=== PATIENT | female | born 1930 | race Caucasian/White ===

== ENCOUNTER 2017-05-09 17:37 | Inpatient (IN) ==
[2017-05-09] MEDS ORDERED: SODIUM CHLORIDE 0.9% 500 ML IV STA (18:44)
[2017-05-09] MEDS ORDERED: ALBUTEROL/IPRATROPIUM 3 ML NEB RESP TX STA (18:44)
[2017-05-09] MEDS ORDERED: PIPERACILLIN/TAZOBACTAM 3,375 MG in SODIUM CHLORIDE 0.9% 100 ML IV STA (18:44)
[2017-05-09 18:56] LABS: Basophils % 0.3 % (0.0-0.8); Eosinophils % 0.1 % (0.00-10.9); Hemoglobin 11.5 GM/DL (12.0-16.0); Immature Granulocytes % 0.7 %; Lymphocytes # 1.3 10*3/uL (1.4-4.0); Lymphocytes % 8.4 % (21.3-54.2); Mean Corpuscular HGB Conc 32.9 GM/DL (32-36); Mean Corpuscular Hemoglobin 30 PG (27-34); Mean Corpuscular Volume 92.6 FL (87-102); Mean Platelet Volume 10.4 FL (9.6-12.0); Monocytes # 0.8 10*3/uL (0.11-0.8); Monocytes % 5.2 % (1.7-12.7); Neutrophils # 12.8 10*3/uL (1.4-7.4); Neutrophils % 85.3 % (38.7-73.9); Platelet Count 196 T/CUMM (130-400); Red Blood Count 3.78 MC/CUMM (3.8-5.5)
--- NOTE | 2017-05-09 19:05 | XRay Report ---
Portable chest. Indication: Shortness of breath and fever. Comparison: April 17, 2017. The heart is enlarged with left ventricular hypertrophy. Cardiac hardware is in place. There is calcific plaque present within the aortic knob. There is atelectasis +/- scarring at the left lung base. A small left pleural effusion may also be present. The right lung is clear. There is callus formation at a fracture of the right proximal humerus, in the left distal clavicle fracture is also visible. Impression: Stable mild cardiomegaly. Persistent opacities at the left lung base which may represent a combination of atelectasis, scarring, and or pleural effusion. PROCEDURE INTERPRETED AT [facility] [place] DEPARTMENT OF RADIOLOGY Final Report Signed by: Dr. Tyra Bowden
[2017-05-09 19:11] LABS: Albumin 3.3 G/DL (3.4-5.0); Calcium 9.6 MG/DL (8.5-10.1); Osmolality,Calculated 276.7 MOS/KG (273-304); Potassium 3.9 MMOL/L (3.5-5.1); Total Protein 6.7 G/DL (6.4-8.3)
[2017-05-09] MEDS ORDERED: PIPERACILLIN/TAZOBACTAM 3,375 MG VIAL IV ONE (19:13)
[2017-05-09] MEDS ORDERED: ALBUTEROL NEB SOLN 5 MG/ML 20 ML/BOTTLE CONT NEB STA (19:32)
[2017-05-09 19:54] LABS: Apearance,Urine CLEAR (Clear); Bilirubin,Urine Negative (Negative); Blood, Urine Small mg/dL (Negative); Glucose,Urine (UA) Negative (Negative); Ketones,Urine 5 mg/dL (Negative); Mucus,Urine Occasional /LPF (Occasional); Nitrite,Urine Negative (Negative); Protein,Urine Negative; RBC,Urine <1 /HPF (0-4); Urine Color Yellow (Yellow); Urine Specific Gravity 1.013 (1.001-1.035); Urine Urobilinogen < 2.0 EU/DL (0.2-1.0); WBC,Urine <1 /HPF (0-6)
--- NOTE | 2017-05-09 19:57 | Emergency Department Note ---
Jessenia Peters Hilary, am scribing for, and in the presence of, Killian Rodríguez MD 18:31. Anne Peters Charles R, MD, personally performed the services described in this documentation, ascribed by Elsy Ruelas in my presence, and it is both accurate and complete [id number] . Arrival - Arrival Chief Complaint: Fever Stated Complaint: fever ED Nursing Triage Note: Patient brought to ER 20 via [facility] with a complaint of fever. Family states that it has been going on most of the day. Home health nurse instructed patient to cme to the ER if it didn't improve. Mode of Arrival: Stretcher Limitations: No Limitations Source: Patient, RN Notes Reviewed Time Seen by Provider: 05/09/17 18:14 - History of Present Illness HPI Narrative: Pt is a 87 y/o white female brought to the ED via EMS with c/o a fever which onset today. Pt confirms fever, cough and hurting all over but denies chest pain. No other complaints or problems stated in the ED. Onset (ago): hour(s) Consistency: constant Severity: mild Severity scale (1-10): 1 Date of Last Menstrual Period: Hysterectomy Allergies/Adverse Reactions: Allergies Allergy/AdvReac Type Severity Reaction Status Date / Time cephalexin [From Keflex] Allergy Unknown/Unable Verified 03/19/17 19:51 to obtain clindamycin Allergy Unknown/Unable Verified 03/19/17 19:51 to obtain codeine Allergy Unknown/Unable Verified 03/19/17 19:51 to obtain iodine Allergy Unknown/Unable Verified 03/19/17 19:51 to obtain levofloxacin [From Levaquin] Allergy Unknown/Unable Verified 03/19/17 19:51 to obtain theophylline Allergy Unknown/Unable Verified 03/19/17 19:51 to obtain acetaminophen [From Percocet] AdvReac Unknown/Unable Verified 03/19/17 19:51 to obtain aspirin AdvReac Unknown/Unable Verified 03/19/17 19:51 to obtain ketorolac [From Toradol] AdvReac Unknown/Unable Verified 03/19/17 19:51 to obtain loratadine [From Claritin] AdvReac Unknown/Unable Verified 03/19/17 19:51 to obtain Neuromuscular Blockers, AdvReac Unknown/Unable Verified 03/19/17 19:51 Steroidal to obtain [Steroidal Neuromuscular Blockers] Oxycodone [From Percocet] AdvReac Unknown/Unable Verified 03/19/17 19:51 to obtain tramadol [From Ultram] AdvReac Unknown/Unable Verified 03/19/17 19:51 to obtain anti inflammatory drugs AdvReac Unknown/Unable Uncoded 03/19/17 19:51 to obtain Home Medications: Home Medications Medication Instructions Recorded Confirmed Type Brimonidine 0.1% Oph Soln 1 drop BOTH EYES BID 05/11/15 04/03/16 History [Alphagan P 0.1% Oph Soln] Cholecalciferol [Vitamin D3] 1,000 unit PO DAILY 05/11/15 04/03/16 History Escitalopram [Lexapro] 10 mg PO DAILY 05/11/15 04/03/16 History Latanoprost 0.005% Oph Soln 1 drop BOTH EYES BEDTIME 05/11/15 04/03/16 History [Xalatan 0.005% Oph Soln] Omeprazole [Prilosec] 20 mg PO DAILY 05/11/15 04/03/16 History Pilocarpine Tab [Salagen] 5 mg PO TID 05/11/15 04/03/16 History hydrOXYzine HCL TAB [Atarax Tab] 25 mg PO PRN PRN 05/11/15 04/03/16 History Arformoterol Neb [Brovana] 15 mcg RESP TX RT BID 03/30/16 04/03/16 History Fentanyl Patch 1 patch TRANSDERM Q3DAY 03/30/16 04/03/16 History Gabapentin 100 mg PO BID 03/30/16 04/03/16 History HYDROcodone/ACETAMIN 10-325 [Tama 1 tablet PO DIRECTED PRN 03/30/16 History 10-325] Ibandronate Sodium [Boniva] 150 mg PO DIRECTED 03/30/16 04/03/16 History Potassium Chloride 10 meq PO QOTHER DAY 03/30/16 04/03/16 History Zolpidem Tartrate [Ambien] 10 mg PO BEDTIME PRN 03/30/16 04/03/16 History rOPINIRole [Requip] 0.5 mg PO DAILY 03/30/16 04/03/16 History Review of System - Review of System 12 point system: reviewed and no additional remarkable complaints except as stated - Review of System Constitutional: Present: fever Respiratory: Present: cough Cardiovascular: Absent: chest pain Medical,Surgical,& Family Hx - Medical History Cardio: History of: CAD, Hypertension, Cardiovascular Problems (dr maria) Neurology: History of: Dementia No history of: Seizures HEENT: History of: Eye Problem (glasses), Dental Problems (full set) Respiratory: History of: Respiratory Problems (severe cough for several years) Gastrointestinal: History of: GERD Musculoskeletal: History of: Osteoporosis, Musculoskeletal Problems (Arthritis) - Surgical History Cardiac Surgeries: Sugical HX of: Internal Defibrillator Abdominal Surgeries: Surgical HX of: Appendectomy Reproductive Surgeries: Surgical HX of;: Hysterectomy Orthopedic Surgeries: Surgical HX of;: Total Hip Replacement (Bilat) - Social History Smoking Status: Never smoker Exam Vital Signs: Vital Signs Temperature 99.6 F 05/09/17 17:48 Pulse Rate 105 H 05/09/17 19:36 Respiratory Rate 19 05/09/17 19:36 Blood Pressure 115/61 05/09/17 19:00 O2 Sat by Pulse Oximetry 100 05/09/17 19:36 - General General appearance: alert, in no apparent distress - Head Head exam: Present: atraumatic, normocephalic - Eye Eye exam: Present: normal appearance, PERRL, EOMI - ENT ENT exam: Present: mucous membranes dry, TM's normal bilaterally. Absent: mucous membranes moist - Neck Neck exam: Present: full ROM, trachea midline. Absent: tenderness - Chest Chest inspection: Present: symmetric chest wall rise. Absent: tenderness - Respiratory Respiratory exam: Present: rhonchi, other (wet productive cough). Absent: normal lung sounds bilaterally (decreased breath sounds) - Cardiovascular Cardiovascular exam: Present: tachycardia, irregular rhythm, normal heart sounds. Absent: murmur, rubs, gallop - Abdominal Exam Abdominal exam: Present: soft, diminished bowel sounds. Absent: distention, tenderness - Extremities Exam Extremities exam: Present: full ROM. Absent: tenderness, pedal edema (no pedal edema but painful to touch) - Back Exam Back exam: Present: full ROM. Absent: tenderness - Neurological Exam Neurological exam: Present: alert, oriented X3, CN II-XII intact. Absent: motor sensory deficit - Psychiatric Psychiatric exam: Present: normal affect, normal mood - Skin Skin exam: Present: warm, dry, intact, normal color. Absent: rash Course - Consultations Time: 20:10 Results - Labs CBC & BMP: 05/09/17 17:52 05/09/17 17:52 Lab Results: I have reviewed the patients labs Labs: Laboratory Tests 05/09/17 17:52 WBC 15.0 H RBC 3.78 L Hgb 11.5 L Hct 35.0 L Neut % (Auto) 85.3 H Lymph % (Auto) 8.4 L Neut # (Auto) 12.8 H Lymph # (Auto) 1.3 L Laboratory Tests 05/09/17 17:52 Sodium 138 Potassium 3.9 Chloride 103 Carbon Dioxide 27 Creatinine 1.30 H Glucose 111 H Alkaline Phosphatase 122 H C-Reactive Protein 5.63 H Albumin 3.3 L Albumin/Globulin Ratio 0.9 L Lipase 61.0 L Microbiology 05/09/17 19:45 Throat Group A Streptococcus Rapid Screen - Final Negative for Grp A Strep Ag 05/09/17 19:45 Nasal Aspirate Influenza Types A,B Antigen (DEQUAN) - Final Negative for Influenza A Ag Negative for Influenza B Ag Laboratory Tests 05/09/17 05/09/17 17:52 19:38 ESR Westergren 53 H Urine Color Yellow Urine Appearance Clear Urine Urobilinogen < 2.0 H - Diagnostic Findings Procedure: Chest x-ray: report reviewed by me (Stable mild cardiomegaly. Persistent opacities at viri left lung base which may represent a combination of atelectasis, scarrign and or pleural effusion) Disposition Clinical Impression: Fever, Pneumonia, Leukocytosis, Acute dyspnea Case discussed with: patient, patient's family Disposition: Still a Patient Condition: Stable Time of Disposition: 20:14
[2017-05-09 20:01] LABS: Sedimentation Rate-Westergren 53 MM/HR (0-30)
--- NOTE | 2017-05-09 20:38 | Hospitalist History & Physical ---
Assessment and Plan (1) Aspiration pneumonia Status: Acute Assessment and plan: Consult Dr. Messina for possible bronch, duo nebs, Zosyn and Vanco to cover both aspiration and hospital acquired pneumonia. May have septic shock but lactic acid was not ordered. Blood cultures 2 done not able to tolerate 30 mL's per kilo fluid. We will give a 500 cc normal saline bolus and move to the ICU Current Visit: Yes (2) Hypertension Status: Acute Assessment and plan: Blood pressure running on the lower end hold all blood pressure meds Current Visit: Yes (3) Glaucoma Status: Acute Assessment and plan: Continue glaucoma drops Current Visit: Yes (4) Ribs, multiple fractures Status: Acute Assessment and plan: Reported by . Current Visit: Yes (5) Subdural hematoma Status: Acute Assessment and plan: 5 weeks ago cared for in [place] recently discharged Current Visit: Yes History of Present Illness Chief complaint: sob History of present illness: Ms. Cruz is a 87 year old female who presents to the emergency room with complaints of shortness of breath. Patient on examination he has evidence of bilateral rhonchi suggestive of pneumonia. A lactic acid was not drawn. Patient meets criteria for severe sepsis and if her lactic acid is elevated or blood pressure is lower than what is documented on the ER record that I can access then she may be in septic shock. Patient will be admitted to the ICU. Patient 5 weeks ago had a fall and sustained a subdural hematoma in her brain she was shipped to [place] and then after stabilized was sent to [facility] for recovery. She was just discharged from [facility] a week ago. Patient is extremely weak and not really walking at home. She sounds like she has been aspirating because she has been choking when she eats. She was given Zosyn in the emergency room and blood cultures were drawn. She is currently on 4 L and satting 100%. Her is at bedside and I have discussed her CODE STATUS and he would like her to be a DNR. Home Medications Medication Instructions Recorded Confirmed Type Cholecalciferol [Vitamin D3] 1,000 unit PO DAILY 05/11/15 05/09/17 History Escitalopram [Lexapro] 10 mg PO DAILY 05/11/15 05/09/17 History Latanoprost 0.005% Oph Soln 1 drop BOTH EYES BEDTIME 05/11/15 05/09/17 History [Xalatan 0.005% Oph Soln] Omeprazole [Prilosec] 20 mg PO BID 05/11/15 05/09/17 History Pilocarpine Tab [Salagen] 5 mg PO DAILY 05/11/15 05/09/17 History hydrOXYzine HCL TAB [Atarax Tab] 25 mg PO PRN PRN 05/11/15 05/09/17 History Gabapentin 100 mg PO BID 03/30/16 05/09/17 History HYDROcodone/ACETAMIN 10-325 [Melvin 1 tablet PO DIRECTED PRN 03/30/16 History 10-325] Ibandronate Sodium [Boniva] 150 mg PO Q30D 03/30/16 05/09/17 History Potassium Chloride 10 meq PO QOTHER DAY 03/30/16 05/09/17 History Zolpidem Tartrate [Ambien] 10 mg PO BEDTIME PRN 03/30/16 05/09/17 History rOPINIRole [Requip] 0.5 mg PO DAILY 03/30/16 05/09/17 History Aspirin EC Tab 81 mg PO DAILY 05/09/17 05/09/17 History Benzonatate [Tessalon] 100 mg PO BID PRN 05/09/17 05/09/17 History Brimonidine 0.1% Oph Soln 1 drop BOTH EYES BID 05/09/17 05/09/17 History [Alphagan P 0.1% Oph Soln] Carvedilol [Coreg] 6.25 mg PO DAILY 05/09/17 05/09/17 History Fluticasone 50 Mcg Nasal [place] 1 spray BOTH NARES DAILY PRN 05/09/17 05/09/17 History [Flonase Nasal [place]] Ipratropium/Albuterol Sulfate 3 ml IH TID 05/09/17 05/09/17 History [Iprat-Albut 0.5-3(2.5) mg/3 ml] Lisinopril 5 mg PO DAILY 05/09/17 05/09/17 History fentaNYL 12 MCG/HR PATCH 1 patch TRANSDERM Q3DAY 05/09/17 05/09/17 History [Duragesic 12 Patch] Allergies Allergy/AdvReac Type Severity Reaction Status Date / Time cephalexin [From Keflex] Allergy Unknown/Unable Verified 03/19/17 19:51 to obtain clindamycin Allergy Unknown/Unable Verified 03/19/17 19:51 to obtain codeine Allergy Unknown/Unable Verified 03/19/17 19:51 to obtain iodine Allergy Unknown/Unable Verified 03/19/17 19:51 to obtain levofloxacin [From Levaquin] Allergy Unknown/Unable Verified 03/19/17 19:51 to obtain theophylline Allergy Unknown/Unable Verified 03/19/17 19:51 to obtain acetaminophen [From Percocet] AdvReac Unknown/Unable Verified 03/19/17 19:51 to obtain aspirin AdvReac Unknown/Unable Verified 03/19/17 19:51 to obtain ketorolac [From Toradol] AdvReac Unknown/Unable Verified 03/19/17 19:51 to obtain loratadine [From Claritin] AdvReac Unknown/Unable Verified 03/19/17 19:51 to obtain Neuromuscular Blockers, AdvReac Unknown/Unable Verified 03/19/17 19:51 Steroidal to obtain [Steroidal Neuromuscular Blockers] Oxycodone [From Percocet] AdvReac Unknown/Unable Verified 03/19/17 19:51 to obtain tramadol [From Ultram] AdvReac Unknown/Unable Verified 03/19/17 19:51 to obtain anti inflammatory drugs AdvReac Unknown/Unable Uncoded 03/19/17 19:51 to obtain Medical,Surgical,& Family Hx - Medical History Cardio: History of: CAD, Hypertension, Cardiovascular Problems (dr maria) Neurology: History of: Dementia No history of: Seizures HEENT: History of: Eye Problem (glasses), Dental Problems (full set) Respiratory: History of: Respiratory Problems (severe cough for several years) Gastrointestinal: History of: GERD Musculoskeletal: History of: Osteoporosis, Musculoskeletal Problems (Arthritis) Other: History of: Miscellaneous Medical Problems (Subdural hematoma) - Surgical History Cardiac Surgeries: Sugical HX of: Internal Defibrillator Abdominal Surgeries: Surgical HX of: Appendectomy Reproductive Surgeries: Surgical HX of;: Hysterectomy Orthopedic Surgeries: Surgical HX of;: Total Hip Replacement (Bilat) - Family History Family History: Denies;: Family Diabetes, Family Heart Disease, Family Stroke - Social History Smoking Status: Never smoker Frequency of Alcohol Use: None Type of Drug Use: None Marital Status: Lives With:: Spouse Functional capacity: bed bound - Constitutional Constitutional: Present: headache(s). Absent: fatigue, fever(s) - EENT Eyes: Absent: blurry vision, diplopia Ears: Present: decreased hearing. Absent: ear discharge Nose, mouth and throat: Present: headache(s), sore throat - Cardiovascular Cardiovascular: Present: dyspnea, dyspnea on exertion. Absent: chest pain at rest, edema - Respiratory Respiratory: Present: cough, dyspnea, dyspnea on exertion, wheezing, change in phlegm color - Gastrointestinal Gastrointestinal: Present: constipation. Absent: diarrhea, nausea, vomiting - Genitourinary Genitourinary: Absent: difficulty urinating, dysuria - Musculoskeletal Musculoskeletal: Absent: arthralgias, joint swelling - Neurological Neurological: Present: headache(s). Absent: syncope - Psychiatric Psychiatric: Present: depression. Absent: anxiety - Endocrine Endocrine: Present: fatigue. Absent: cold intolerance, heat intolerance - Hematologic/Lymphatic Hematologic/Lymphatic: Absent: easy bleeding, easy bruising Exam - Constitutional Vitals: Period Temp Pulse Resp BP Sys/Prieto Pulse Ox Last 24 Hr 99.6 F-99.6 F 105-114 17-24 115-127/61-77 94-100 General appearance: severe distress, under weight - Head Head exam: Present: normal inspection, normocephalic - Eye Eye exam: Present: EOMI. Absent: scleral icterus Pupils: Present: ANAMARIA, normal accommodation - ENT ENT exam: Present: normal exam, normal external ear exam - Neck Neck exam: Absent: lymphadenopathy, thyromegaly - Respiratory Respiratory exam: Present: rales, rhonchi - Cardiovascular Cardiovascular exam: Present: systolic murmur, tachycardia - GI/Abdominal GI/Abdominal exam: Present: normal bowel sounds, soft. Absent: tenderness - Extremities Exam Extremities exam: Present: normal inspection, normal capillary refill. Absent: edema - Neurological Exam Neurological exam: Present: alert, motor sensory deficit (bilateral UE and LE weakness ), reflexes normal - Psychiatric Psychiatric exam: Present: depressed, flat affect - Skin Skin exam: Present: normal color, warm Results - Labs CBC & BMP: 05/09/17 17:52 05/09/17 17:52 Lab Results: I have reviewed the past 24 hour labs Labs: Negative for strep today, negative for influenza - Diagnostic Findings Procedure: Chest x-ray: report reviewed by me (Left lower lobe pneumonia)
[2017-05-09] MEDS ORDERED: SODIUM CHLORIDE 0.9% 500 ML IV ONE (20:45)
[2017-05-09] MEDS ORDERED: ONDANSETRON 4 MG/2 ML VIAL IV PRN (21:02)
[2017-05-09] MEDS ORDERED: BRIMONIDINE 0.1% OPH SOLN 5 ML BOTTLE BOTH EYES SCH (21:02)
--- NOTE | 2017-05-09 21:14 | EKG Report ---
Stationary ECG Study [facility] Test Date: 05/09/2017 9:14:37 PM Pat Name: FIDELIA ALVARADO Department: Room: 125 Gender: F Medical Laboratory Assistant: : 1930 Requested by: Jimbo Powell Order Number: [id number] Reading MD: BERNICE CUEVAS Intervals [place] Rate: 133 P: -77 NE: 111 QRS: -25 QRSD: 140 T: 129 QT: 356 QTc: 434 Interpretive Statements JUNCTIONAL TACHYCARDIA LEFT BUNDLE BRANCH BLOCK Electronically Signed On 05-12-17 15:07:19 CDT by BERNICE CUEVAS [email or web address]
[2017-05-09] MEDS: SODIUM CHLORIDE 0.9% 1,000 ML IV SCH (21:24)
[2017-05-09] MEDS ORDERED: CLORAZEPATE 3.75 MG TABLET PO ONE (21:39)
[2017-05-09] MEDS ORDERED: CLORAZEPATE 7.5 MG TABLET PO ONE (22:00)
[2017-05-09] MEDS: PILOCARPINE 5 MG TABLET PO SCH (22:33)
[2017-05-09] MEDS: BRIMONIDINE 0.1% OPH SOLN 5 ML BOTTLE BOTH EYES SCH (22:33)
[2017-05-09] MEDS: LATANOPROST 0.005% OPH SOLN 2.5 ML BOTTLE BOTH EYES SCH (22:34)
[2017-05-10] MEDS ORDERED: VANCOMYCIN INJ 1,000 MG in SODIUM CHLORIDE 0.9% 250 ML IV SCH
[2017-05-10] MEDS: ALBUTEROL/IPRATROPIUM 3 ML NEB RESP TX SCH ×7 (00:14→23:36)
[2017-05-10 05:18] LABS: Basophils % 0.3 % (0.0-0.8); Hematocrit 29.5 VOL% (35.7-47.0); Immature Granulocytes % 0.5 %; Immature Granulocytes Absolute 0.07 #; Lymphocytes # 1.9 10*3/uL (1.4-4.0); Lymphocytes % 13.6 % (21.3-54.2); Mean Corpuscular HGB Conc 32.2 GM/DL (32-36); Mean Corpuscular Hemoglobin 30 PG (27-34); Mean Corpuscular Volume 93.9 FL (87-102); Mean Platelet Volume 10.2 FL (9.6-12.0); Monocytes # 1.2 10*3/uL (0.11-0.8); Monocytes % 8.5 % (1.7-12.7); Neutrophils # 10.8 10*3/uL (1.4-7.4); Neutrophils % 77.1 % (38.7-73.9); Platelet Count 163 T/CUMM (130-400); Red Blood Count 3.14 MC/CUMM (3.8-5.5); Red Cell Distribution Width 16.2 % (9.3-17.3); White Blood Count 14.1 T/CUMM (4-12)
[2017-05-10 05:43] LABS: Hemoglobin 9.5 GM/DL (12.0-16.0)
[2017-05-10 05:54] LABS: Albumin 2.5 G/DL (3.4-5.0); Calcium 8.7 MG/DL (8.5-10.1); Osmolality,Calculated 283.3 MOS/KG (273-304); Potassium 3.4 MMOL/L (3.5-5.1); Total Protein 5.5 G/DL (6.4-8.3)
[2017-05-10 05:58] LABS: Hypochromasia Slight
[2017-05-10] MEDS: PIPERACILLIN/TAZOBACTAM 3,375 MG in SODIUM CHLORIDE 0.9% 100 ML IV SCH ×3 (05:58→20:17)
[2017-05-10 05:59] LABS: Microcytosis 1+
[2017-05-10 06:00] LABS: Anisocytosis 1+; Platelet Estimate Adequate
[2017-05-10] MEDS ORDERED: POTASSIUM CHLORIDE RIDER 10 MEQ in PREMIX 1 EACH IV PRN (07:43)
[2017-05-10] MEDS ORDERED: POTASSIUM CHLORIDE RIDER 20 MEQ in PREMIX 1 EACH IV PRN (07:43)
--- NOTE | 2017-05-10 07:43 | Hospitalist Progress Note ---
Hospitalist: Subjective Interval history: Cough better. No chest pain. No nausea or vomiting. + hungry. No lightheadedness / dizziness Exam - Constitutional Vitals: Period Temp Pulse Resp BP Sys/Prieto Pulse Ox Last 24 Hr 97.4 F-99.9 F 89-141 16-25 99-130/43-77 89-100 Exam: Awake, alert, elderly, oriented to person, place and situation, on face mask RRR scattered coarse bilaterally, nonlabored Soft, NT, ND, +BS Warm no c/c/e; CARLISLE Results - Labs CBC & BMP: 05/10/17 04:45 05/10/17 04:45 - Impressions (1) Aspiration pneumonia Status: Acute Assessment and plan: Seen with Dr. Messina at the bedside. No plans for bronch at this time. Cont Duo nebs. Cont Zosyn and DC Vanco. Plans to add mucinex, Pulmozyme, Singulair F/U Blood cultures 2 Throat culture negative; Flu negative Agree with transfer to floor. See orders Current Visit: Yes (2) Essential Hypertension Status: Acute Assessment and plan: Holding BP meds for now Current Visit: Yes (3) Glaucoma Status: Acute Assessment and plan: Continue glaucoma drops Current Visit: Yes (4) Ribs, multiple fractures Status: Acute Assessment and plan: Reported by . Current Visit: Yes (5) Subdural hematoma Status: Acute Assessment and plan: 5 weeks ago cared for in [place] recently discharged. Avoid ASA, blood thinners. Current Visit: Yes DVT prophylaxis- SCDs D/W pt, Dr. Messina, nurse, pt and . All questions answered.
[2017-05-10] MEDS: ARFORMOTEROL 15 MCG/2 ML NEB RESP TX SCH ×2 (08:00→19:34)
--- NOTE | 2017-05-10 08:36 | XRay Report ---
History: Cough Date: 05/10/2017 Study: Chest x-ray AP portable Comparison exam: 05/09/2017 There is continued cardiomegaly. The mediastinal contours are unchanged. There is no pulmonary vascular engorgement. A left subclavian multiple lead pacemaker/defibrillator device is stable in appearance. The right lung remains generally clear. There is some continued increased density laterally in the left lower lobe which may represent a combination of pleural thickening/effusion and atelectasis, though there is improved aeration in the left lower lobe since the previous exam. There is no new or worsening process. There is subacute or older healing fracture of the surgical neck right humerus. Impression: Mildly improved aeration in the left lower lobe since the previous day. Otherwise unchanged PROCEDURE INTERPRETED AT [facility] [place] DEPARTMENT OF RADIOLOGY Final Report Signed by: Dr. Neena Jean-Baptiste
[2017-05-10] MEDS ORDERED: PANTOPRAZOLE 40 MG VIAL IV SCH (09:00)
[2017-05-10] MEDS: PILOCARPINE 5 MG TABLET PO SCH ×3 (09:18→20:19)
[2017-05-10] MEDS: ESCITALOPRAM 10 MG TABLET PO SCH (09:18)
[2017-05-10] MEDS: CHOLECALCIFEROL 1,000 UNIT TABLET PO SCH (09:18)
[2017-05-10] MEDS: BRIMONIDINE 0.1% OPH SOLN 5 ML BOTTLE BOTH EYES SCH ×2 (09:26→20:18)
[2017-05-10] MEDS: MONTELUKAST 10 MG TABLET PO SCH (09:26)
[2017-05-10] MEDS: SODIUM CHLORIDE 0.9% 1,000 ML IV SCH ×2 (10:01→21:22)
--- NOTE | 2017-05-10 10:45 | Pulmonology Consult Note ---
History of Present Illness Chief complaint: Pneumonia. History of present illness: Ms. Cruz is a 87 year old white female whom I been asked to see pulmonary consultation for evaluation and treatment. I have seen this patient several times in my office and her is a patient of [facility]. A month or so ago this patient was seen in [facility] emergency room. She has had a fall. She had a subdural hematoma. She was transported to [place]. She did not require surgery since that time she has been at [facility] for long-term acute care. She was under the care of Dr. Tate and Dr. Harley Guzmán. She was discharged about a week ago. Since that time she has developed a cough and increased shortness of breath. I asked the patient I asked her about aspiration either while swallowing food or with reflux and they both denied either of these events. Patient complains of being weak. She says her swallowing is fine. She has not had any cardiac angina. The remainder of the review of systems is negative. Allergies. Singulair caused her to have a headache in the past and she said it made her stomach swell. Aspirin. Claritin. Clindamycin. Codeine. Iodine. Keflex. Levaquin. Toradol. Ultram. Home medicines. See below Vaccinations. Pneumovax was given 11/07/2010 and patient gets yearly flu shot. Past history. April 2017 subdural hematoma. Parkinson's disease. Bronchospastic disease. High blood pressure. Osteoporosis. Chronic pain. History of depression. Degenerative joint disease. History of cardiomyopathy with congestive heart failure followed by Dr. Chuck Fitzpatrick. Past history of a CVA. Esophageal motility dysfunction. Fractured humerus. Hypothyroidism. Pulmonary hypertension. Chronic sinusitis. Past history of TIAs. Social history. Patient is . Her Mann Simms is a patient of [facility] and he works for [employer] insurance the patient is never use alcohol or tobacco. Surgical history. AICD placement June 2010 with a generator change 05/27/2012. Tonsillectomy. Appendectomy. Family history. Her brother required cardiac surgery. Her brother had a myocardial infarction. Her mother had a myocardial infarction. Chest x-ray. My interpretation. Cardiomegaly. Pulmonary arteries are top normal. No hilar adenopathy. Mediastinum is normal. No congestive heart failure. Probable left lower lung infiltrate compatible with pneumonia Lab. Admit white count was 15,000 with 85 segs. H&H 11.5/35.0 and platelets 196,000. Sed rate was elevated at 53. Sodium is 141 potassium is low at 3.4 creatinine is 1.3 with a BUN of 18. Liver function tests are normal protein and albumin are low at 5.5 and 2.5 respectively. Urine shows no evidence of infection. Thyroid function tests are normal. Amylase and lipase are normal. Physical exam Vital signs. See below. So far no fever has been recorded. Psychiatric. Oriented 3. Neurologic. Cranial nerves are intact. Patient moves all 4 extremities. Sensory exam was not done in gait was not tested. Face. Symmetrical. Lips and tongue are normal. Neck. Symmetrical. Kyphotic. No meningismus. Lymphatics. No submandibular cervical supraclavicular or epitrochlear adenopathy. Chest is symmetrical kyphotic with a lot of large airway congestion and wheezing over the left mainstem bronchus. No unusual chest wall tenderness. Heart. Lateral PMI. I cannot hear a gallop new care Breasts. Deferred Abdomen. Nontender. Bowel sounds are present. and rectal deferred Lower extremities. Nothing to suggest deep venous thrombophlebitis. I do not see any edema Musculoskeletal. Age of appropriate loss normal curvature of the cervical thoracic and lumbar spine. There are degenerative changes of the hands and knees and ankles. The remainder the physical exam is negative Impression. 1. Acute left lower lung pneumonia 2. Bronchospastic disease with exacerbation 3. Recent subdural hematoma that did not require surgery. 4. Parkinson's disease 5. History of cardiomyopathy and congestive heart failure with an implantable defibrillator followed by Dr. Chuck Fitzpatrick 6. High blood pressure 7. Past history of TIAs and CVA 8. Hypothyroidism 9. Past history of esophageal motility dysfunction 10. Chronic pain Plan. 1. Duo nebs 4 times daily and as needed 2. Pulmozyme inhalation treatments twice daily 3. Sputum for Gram stain culture and sensitivity 4. Follow-up chest x-ray 5. Echocardiogram 6. Trial of Singulair. Not sure that the patient's previous symptoms were allergic and she has significant large airway wheezing at the present time. #7 follow-up chest x-rays for the next 3 days. 8. Based on history I have I think is safe for the patient to begin to eat. Remember there is a past history of esophageal motility dysfunction. Will watch for gastroesophageal reflux disease. 9. See orders. 10. Dr. lisa Tate to see the patient for me this weekend. Home Medications Medication Instructions Recorded Confirmed Type Cholecalciferol [Vitamin D3] 1,000 unit PO DAILY 05/11/15 05/09/17 History Escitalopram [Lexapro] 10 mg PO DAILY 05/11/15 05/09/17 History Latanoprost 0.005% Oph Soln 1 drop BOTH EYES BEDTIME 05/11/15 05/09/17 History [Xalatan 0.005% Oph Soln] Omeprazole [Prilosec] 20 mg PO BID 05/11/15 05/09/17 History Pilocarpine Tab [Salagen] 5 mg PO DAILY 05/11/15 05/09/17 History hydrOXYzine HCL TAB [Atarax Tab] 25 mg PO PRN PRN 05/11/15 05/09/17 History Gabapentin 100 mg PO BID 03/30/16 05/09/17 History HYDROcodone/ACETAMIN 10-325 [Amery 1 tablet PO DIRECTED PRN 03/30/16 History 10-325] Ibandronate Sodium [Boniva] 150 mg PO Q30D 03/30/16 05/09/17 History Potassium Chloride 10 meq PO QOTHER DAY 03/30/16 05/09/17 History Zolpidem Tartrate [Ambien] 10 mg PO BEDTIME PRN 03/30/16 05/09/17 History rOPINIRole [Requip] 0.5 mg PO DAILY 03/30/16 05/09/17 History Aspirin EC Tab 81 mg PO DAILY 05/09/17 05/09/17 History Benzonatate [Tessalon] 100 mg PO BID PRN 05/09/17 05/09/17 History Brimonidine 0.1% Oph Soln 1 drop BOTH EYES BID 05/09/17 05/09/17 History [Alphagan P 0.1% Oph Soln] Carvedilol [Coreg] 6.25 mg PO DAILY 05/09/17 05/09/17 History Fluticasone 50 Mcg Nasal [place] 1 spray BOTH NARES DAILY PRN 05/09/17 05/09/17 History [Flonase Nasal [place]] Ipratropium/Albuterol Sulfate 3 ml IH TID 05/09/17 05/09/17 History [Iprat-Albut 0.5-3(2.5) mg/3 ml] Lisinopril 5 mg PO DAILY 05/09/17 05/09/17 History fentaNYL 12 MCG/HR PATCH 1 patch TRANSDERM Q3DAY 05/09/17 05/09/17 History [Duragesic 12 Patch] Allergies Allergy/AdvReac Type Severity Reaction Status Date / Time cephalexin [From Keflex] Allergy Unknown/Unable Verified 03/19/17 19:51 to obtain clindamycin Allergy Unknown/Unable Verified 03/19/17 19:51 to obtain codeine Allergy Unknown/Unable Verified 03/19/17 19:51 to obtain iodine Allergy Unknown/Unable Verified 03/19/17 19:51 to obtain levofloxacin [From Levaquin] Allergy Unknown/Unable Verified 03/19/17 19:51 to obtain theophylline Allergy Unknown/Unable Verified 03/19/17 19:51 to obtain acetaminophen [From Percocet] AdvReac Unknown/Unable Verified 03/19/17 19:51 to obtain aspirin AdvReac Unknown/Unable Verified 03/19/17 19:51 to obtain ketorolac [From Toradol] AdvReac Unknown/Unable Verified 03/19/17 19:51 to obtain loratadine [From Claritin] AdvReac Unknown/Unable Verified 03/19/17 19:51 to obtain Neuromuscular Blockers, AdvReac Unknown/Unable Verified 03/19/17 19:51 Steroidal to obtain [Steroidal Neuromuscular Blockers] Oxycodone [From Percocet] AdvReac Unknown/Unable Verified 03/19/17 19:51 to obtain tramadol [From Ultram] AdvReac Unknown/Unable Verified 03/19/17 19:51 to obtain anti inflammatory drugs AdvReac Unknown/Unable Uncoded 03/19/17 19:51 to obtain Exam (Pulmonay) H&P - Constitutional Vitals: Period Temp Pulse Resp BP Sys/Prieto Pulse Ox Last 24 Hr 97.4 F-99.9 F 89-141 15-25 99-130/43-77 89-100 Medical,Surgical,& Family Hx - Medical History Cardio: History of: CAD, Cardiovascular Problems (dr fitzpatrick) No history of: Hypertension Neurology: History of: Dementia No history of: Seizures HEENT: History of: Eye Problem (glasses), Dental Problems (full set) Respiratory: History of: Respiratory Problems (severe cough for several years) Gastrointestinal: History of: GERD Musculoskeletal: History of: Osteoporosis, Musculoskeletal Problems (Arthritis) Other: History of: Miscellaneous Medical Problems (Subdural hematoma) - Surgical History Cardiac Surgeries: Sugical HX of: Internal Defibrillator Abdominal Surgeries: Surgical HX of: Appendectomy Reproductive Surgeries: Surgical HX of;: Hysterectomy Patient denies;: Genitourinary Surgery Orthopedic Surgeries: Surgical HX of;: Total Hip Replacement (Bilat) - Family History Family History: Denies;: Family Diabetes, Family Heart Disease, Family Stroke - Social History Smoking Status: Never smoker Frequency of Alcohol Use: None Type of Drug Use: None Results - Labs CBC & BMP: 05/10/17 04:45 05/10/17 04:45
[2017-05-10 12:09] LABS: Bilirubin,Total 1.1 MG/DL (0.2-1.0)
[2017-05-10 12:26] LABS: Bilirubin,Total 1.6 MG/DL (0.2-1.0)
--- NOTE | 2017-05-10 16:14 | ECHO Report ---
Kellen Cruz Exam Date: 05/10/2017 07:56 Referring Physician: Technologist: nuvia Helton ARDMS, RVT Age: 87 Ht (in): 61 Wt (lb): 135 Gender: F Exam Location: [facility] Echo Indications: Essential (primary) hypertension, Subdural hematoma, Fractured ribs, Pneumonia, Leukocytosis, Acute dyspnea BP: 121 / 53 HR: 89 Rhythm: Sinus Technical Quality: Fair IMPRESSIONS Normal left ventricular cavity size. Mild to moderate left ventricular hypertrophy. Left ventricular ejection fraction is estimated at 35%. Paradoxic septal motion consistent with RV volume/pressure overload. RA nl size. The left atrium is mildly enlarged. Mitral valve sclerosis. Mild-moderate mitral valve regurgitation. Aortic valve sclerosis. [id number] aortic valve regurgitation. Morphologically normal tricuspid valve. Mild tricuspid valve regurgitation. Tricuspid regurgitation velocities suggest a PAP of 37 mmHg. Not well seen. No significant efusion or evidence of pericardial thickening noted. Notmal aortic dimension without dissection or aneurysmal dilatation noted. MEASUREMENTS (Male / Female) Normal Values 2D ECHO LV Diastolic Diameter PLAX 4.9 cm 4.2 - 5.9 / 3.9 - 5.3 cm LV Systolic Diameter PLAX 3.1 cm LV Fractional Shortening PLAX 36.5 % IVS Diastolic Thickness 1.5 cm 0.6 - 1.0 / 0.6 - 0.9 cm LVPW Diastolic Thickness 1.6 cm 0.6 - 1.0 / 0.6 - 0.9 cm RV Internal Dim ED PLAX 2.6 cm Aortic Root Diameter 2.8 cm LA Systolic Diameter LX 4.2 cm 3.0 - 4.0 / 2.7 - 3.8 cm DOPPLER TR Peak Velocity 261.0 cm/s TR Peak Gradient 27.2 mmHg FINDINGS Left Ventricle Normal left ventricular cavity size. Mild to moderate left ventricular hypertrophy. Left ventricular ejection fraction is estimated at 35%. Right Ventricle paradoxic septal motion consistent with RV volume/pressure overload Right Atrium RA nl size Left Atrium The left atrium is mildly enlarged. Mitral Valve Mitral valve sclerosis. Mild-moderate mitral valve regurgitation. Aortic Valve Aortic valve sclerosis. [id number] aortic valve regurgitation. Tricuspid Valve Morphologically normal tricuspid valve. Mild tricuspid valve regurgitation. Tricuspid regurgitation velocities suggest a PAP of 37 mmHg. Pulmonic Valve not well seen Pericardium No significant efusion or evidence of pericardial thickening noted. Aorta notmal aortic dimension without dissection or aneurysmal dilatation noted. Loco Fitzpatrick MD (Electronically Signed) Final Date: 10 May 2017 16:13
[2017-05-10] MEDS: CLORAZEPATE 3.75 MG TABLET PO PRN (17:55)
[2017-05-10] MEDS: DORNASE ALFA 2.5 MG/2.5 ML VIAL RESP TX SCH (19:50)
[2017-05-10] MEDS: GABAPENTIN 100 MG CAPSULE PO SCH ×2 (20:16→20:56)
[2017-05-10] MEDS: LATANOPROST 0.005% OPH SOLN 2.5 ML BOTTLE BOTH EYES SCH (20:19)
[2017-05-11] MEDS: PIPERACILLIN/TAZOBACTAM 3,375 MG in SODIUM CHLORIDE 0.9% 100 ML IV SCH ×3 (03:30→20:29)
[2017-05-11] MEDS: ALBUTEROL/IPRATROPIUM 3 ML NEB RESP TX SCH ×5 (03:32→19:17)
[2017-05-11 03:53] LABS: Basophils % 0.3 % (0.0-0.8); Eosinophils # 0.2 10*3/uL (0.0-0.87); Eosinophils % 2.6 % (0.00-10.9); Hematocrit 25.7 VOL% (35.7-47.0); Hemoglobin 8.1 GM/DL (12.0-16.0); Immature Granulocytes % 0.3 %; Immature Granulocytes Absolute 0.02 #; Lymphocytes # 1.7 10*3/uL (1.4-4.0); Lymphocytes % 25.6 % (21.3-54.2); Mean Corpuscular HGB Conc 31.5 GM/DL (32-36); Mean Corpuscular Hemoglobin 30 PG (27-34); Mean Corpuscular Volume 94.8 FL (87-102); Mean Platelet Volume 10.3 FL (9.6-12.0); Monocytes # 0.6 10*3/uL (0.11-0.8); Monocytes % 9.5 % (1.7-12.7); Neutrophils # 4.1 10*3/uL (1.4-7.4); Neutrophils % 61.7 % (38.7-73.9); Platelet Count 154 T/CUMM (130-400); Red Blood Count 2.71 MC/CUMM (3.8-5.5); White Blood Count 6.6 T/CUMM (4-12)
[2017-05-11 04:21] LABS: Albumin 2.5 G/DL (3.4-5.0); Bilirubin,Total 0.6 MG/DL (0.2-1.0); Calcium 8.7 MG/DL (8.5-10.1); Osmolality,Calculated 283.1 MOS/KG (273-304); Potassium 3.4 MMOL/L (3.5-5.1); Total Protein 5.3 G/DL (6.4-8.3)
[2017-05-11] MEDS: ARFORMOTEROL 15 MCG/2 ML NEB RESP TX SCH ×2 (07:42→19:17)
[2017-05-11] MEDS: DORNASE ALFA 2.5 MG/2.5 ML VIAL RESP TX SCH ×2 (07:42→19:19)
[2017-05-11] MEDS: PILOCARPINE 5 MG TABLET PO SCH ×3 (08:16→20:30)
[2017-05-11] MEDS: CHOLECALCIFEROL 1,000 UNIT TABLET PO SCH (08:17)
[2017-05-11] MEDS: PANTOPRAZOLE 40 MG TABLET PO SCH (08:17)
[2017-05-11] MEDS: GABAPENTIN 100 MG CAPSULE PO SCH ×2 (08:17→20:29)
[2017-05-11] MEDS: ESCITALOPRAM 10 MG TABLET PO SCH (08:17)
[2017-05-11] MEDS: MONTELUKAST 10 MG TABLET PO SCH (08:17)
[2017-05-11] MEDS: BRIMONIDINE 0.1% OPH SOLN 5 ML BOTTLE BOTH EYES SCH ×2 (08:22→20:30)
--- NOTE | 2017-05-11 10:46 | XRay Report ---
History is respiratory distress Comparison 05/10/2017 The heart is enlarged with pacemaker present There has been development of elevation left diaphragm mildly increasing patchy and minimally more confluent parenchymal opacities at the left lung base. Minimal hypoaeration changes at the right base present. Right humeral neck fracture again demonstrated. Impression: 1. Mildly increasing left basilar infiltrate/atelectasis PROCEDURE INTERPRETED AT [facility] DEPARTMENT OF RADIOLOGY Final Report Signed by: Dr. Bessy Bowden
[2017-05-11] MEDS: SODIUM CHLORIDE 0.9% 1,000 ML IV SCH ×3 (10:51→20:40)
--- NOTE | 2017-05-11 11:16 | Pulmonology Progress Note ---
Pulmonary - PN: Subj Interval history: This 87-year-old white female was admitted after a cough that is going on for about a week. She probably has a left basilar infiltrate on x-ray. Primarily has bronchitis type symptoms. She has had a prolonged hospitalization following a fall with fracture of her right humerus, left clavicle, first through seventh left ribs, and a subdural hematoma. She was sent to a swing bed but did not like it and went home after a day. She needs a good bit more physical therapy. She is chronically on a good bit of pain medications. She feels better today. Exam (Progress Note) - Constitutional Vitals: Period Temp Pulse Resp BP Sys/Prieto Pulse Ox Last 24 Hr 97.5 F-98.6 F 76-101 14-22 107-161/42-86 92-100 Exam: Patient's alert and responsive. Vital signs normal. Her head tilts to the left is usual. Pupils react to light. Throat is clear. Neck supple no bruits. Chest shows some scattered expiratory rhonchi. Heart normal rate and rhythm no murmurs. Abdomen soft nontender no masses. Extremities no clubbing cyanosis edema. Calves nontender. Results - Labs CBC & BMP: 05/11/17 03:33 05/11/17 03:33 Lab Results: I have reviewed the past 24 hour labs - Diagnostic Findings Procedure: Chest x-ray: image reviewed by me (Minimal left basilar infiltrate) Assessment and Plan (1) Acute bronchitis Status: Acute Assessment and plan: Continuing with antibiotics and bronchodilators. Would go light on steroids. Current Visit: Yes (2) Pneumonia Status: Acute Assessment and plan: Probably has a mild left basilar bronchopneumonia. Current Visit: Yes
--- NOTE | 2017-05-11 13:34 | Hospitalist Progress Note ---
Hospitalist: Subjective Interval history: Shortness of breath and cough is better. She slept well. No fever. Tolerating oral intake. Exam - Constitutional Vitals: Period Temp Pulse Resp BP Sys/Prieto Pulse Ox Last 24 Hr 97.5 F-98.6 F 75-101 15-20 107-161/46-74 92-100 Exam: Awake, alert, elderly, oriented to person, place and situation, on nasal cannula RRR Clear to auscultation bilaterally anteriorly, diminished at the bases, nonlabored Soft, NT, ND, +BS Warm no c/c/e; [facility] Results - Labs CBC & BMP: 05/11/17 03:33 05/11/17 03:33 - Impressions (1) Aspiration pneumonia-improving Status: Acute Assessment and plan: Pulmonology following. Cont Duo nebs, mucinex, Pulmozyme, Singulair. Cont Zosyn. F/U Blood cultures 2 Throat culture negative. Flu negative Current Visit: Yes (2) Essential Hypertension- controlled Status: Acute Assessment and plan: Holding BP meds for now Current Visit: Yes (3) Glaucoma Status: Acute Assessment and plan: Continue glaucoma drops Current Visit: Yes (4) Ribs, multiple fractures Status: Acute Assessment and plan: Reported by . Current Visit: Yes (5) Subdural hematoma Status: Acute Assessment and plan: 5 weeks ago cared for in [place] recently discharged. Reportedly, Repeat CT of the head was done and was negative. Current Visit: Yes (6) hypokalemia -Replace per protocol DVT prophylaxis- SCDs D/W pt, Dr. Messina, daughter, and nurse. All questions answered.
[2017-05-11] MEDS: LATANOPROST 0.005% OPH SOLN 2.5 ML BOTTLE BOTH EYES SCH (20:30)
[2017-05-12] MEDS: ALBUTEROL/IPRATROPIUM 3 ML NEB RESP TX SCH ×7 (00:12→23:57)
[2017-05-12] MEDS: PIPERACILLIN/TAZOBACTAM 3,375 MG in SODIUM CHLORIDE 0.9% 100 ML IV SCH ×3 (03:06→20:24)
[2017-05-12 04:26] LABS: Basophils % 0.5 % (0.0-0.8); Eosinophils # 0.3 10*3/uL (0.0-0.87); Eosinophils % 4.1 % (0.00-10.9); Hematocrit 26.6 VOL% (35.7-47.0); Hemoglobin 8.4 GM/DL (12.0-16.0); Immature Granulocytes % 0.5 %; Immature Granulocytes Absolute 0.03 #; Lymphocytes # 1.5 10*3/uL (1.4-4.0); Lymphocytes % 24.2 % (21.3-54.2); Mean Corpuscular HGB Conc 31.6 GM/DL (32-36); Mean Corpuscular Hemoglobin 30 PG (27-34); Mean Corpuscular Volume 93.7 FL (87-102); Mean Platelet Volume 10.5 FL (9.6-12.0); Monocytes # 0.7 10*3/uL (0.11-0.8); Monocytes % 10.3 % (1.7-12.7); Neutrophils # 3.8 10*3/uL (1.4-7.4); Neutrophils % 60.4 % (38.7-73.9); Platelet Count 167 T/CUMM (130-400); Red Blood Count 2.84 MC/CUMM (3.8-5.5); Red Cell Distribution Width 15.7 % (9.3-17.3); White Blood Count 6.3 T/CUMM (4-12)
[2017-05-12 05:07] LABS: Albumin 2.6 G/DL (3.4-5.0); Bilirubin,Total 0.6 MG/DL (0.2-1.0); Osmolality,Calculated 285.7 MOS/KG (273-304); Potassium 3.4 MMOL/L (3.5-5.1); Total Protein 5.6 G/DL (6.4-8.3)
[2017-05-12] MEDS: ARFORMOTEROL 15 MCG/2 ML NEB RESP TX SCH ×2 (07:56→19:13)
[2017-05-12] MEDS: DORNASE ALFA 2.5 MG/2.5 ML VIAL RESP TX SCH ×2 (07:56→19:13)
[2017-05-12] MEDS: PILOCARPINE 5 MG TABLET PO SCH ×3 (08:49→20:26)
[2017-05-12] MEDS: MONTELUKAST 10 MG TABLET PO SCH (08:49)
[2017-05-12] MEDS: ESCITALOPRAM 10 MG TABLET PO SCH (08:49)
[2017-05-12] MEDS: PANTOPRAZOLE 40 MG TABLET PO SCH (08:49)
[2017-05-12] MEDS: CHOLECALCIFEROL 1,000 UNIT TABLET PO SCH (08:49)
[2017-05-12] MEDS: CLORAZEPATE 3.75 MG TABLET PO PRN ×2 (08:49→21:55)
[2017-05-12] MEDS: GABAPENTIN 100 MG CAPSULE PO SCH ×2 (08:49→20:26)
[2017-05-12] MEDS: BRIMONIDINE 0.1% OPH SOLN 5 ML BOTTLE BOTH EYES SCH ×2 (08:50→20:27)
--- NOTE | 2017-05-12 09:04 | Pulmonology Progress Note ---
Pulmonary - PN: Subj Interval history: This 87-year-old white female was admitted after a cough that is going on for about a week. She probably has a left basilar infiltrate on x-ray. Primarily has bronchitis type symptoms. She has had a prolonged hospitalization following a fall with fracture of her right humerus, left clavicle, first through seventh left ribs, and a subdural hematoma. She was sent to a swing bed but did not like it and went home after a day. She needs a good bit more physical therapy. She is chronically on a good bit of pain medications. She feels better today. 05/12/2017 patient feeling better today. Appetite is better. Lungs sound better. No new complaints. Exam (Progress Note) - Constitutional Vitals: Period Temp Pulse Resp BP Sys/Prieto Pulse Ox Last 24 Hr 97.2 F-98.2 F 65-89 17-20 130-160/56-76 94-100 Exam: Patient's alert and responsive. Vital signs normal. Her head tilts to the left is usual. Pupils react to light. Throat is clear. Neck supple no bruits. Chest sounds clear today. Heart normal rate and rhythm no murmurs. Abdomen soft nontender no masses. Extremities no clubbing cyanosis edema. Calves nontender. Results - Labs CBC & BMP: 05/12/17 03:25 05/12/17 03:25 Lab Results: I have reviewed the past 24 hour labs Assessment and Plan (1) Acute bronchitis Status: Acute Assessment and plan: Continuing with antibiotics and bronchodilators. Would go light on steroids. 05/12/2017 symptoms much improved. Lungs are clear. Patient not on steroids. Current Visit: Yes (2) Pneumonia Status: Acute Assessment and plan: Probably has a mild left basilar bronchopneumonia. 05/12/2017 minimal left basilar infiltrate. Current Visit: Yes
--- NOTE | 2017-05-12 09:41 | XRay Report ---
History is pneumonia Comparison 05/11/2017 The heart is enlarged with a pacemaker present There is been mild interval improved aeration in the left lung base. Blunting of left costophrenic angle with mild patchy, stranding, and mildly more confluent infiltrate/atelectasis in the retrocardiac left base remains No new right lung infiltrates seen. Confluent shadows overlie the lateral left chest Chronic right humerus fracture and rib fractures again seen Impression: Slight improved aeration left base with continued underlying left basilar infiltrate/atelectasis. PROCEDURE INTERPRETED AT [facility] DEPARTMENT OF RADIOLOGY Final Report Signed by: Dr. Bessy Bowden
--- NOTE | 2017-05-12 13:25 | Hospitalist Progress Note ---
Hospitalist: Subjective Interval history: No new complaints. SOB better. Coughing up yellow sputum. No fever. Tolerating po. Denies any pain. Exam - Constitutional Vitals: Period Temp Pulse Resp BP Sys/Prieto Pulse Ox Last 24 Hr 97.2 F-98.2 F 65-88 17-20 136-160/62-76 94-100 Exam: Awake, alert, elderly, oriented to person, place and situation, on nasal cannula RRR Clear to auscultation bilaterally anteriorly, diminished at the bases, nonlabored Soft, NT, ND, +BS Warm no c/c/e; CARLISLE Results - Labs CBC & BMP: 05/12/17 03:25 05/12/17 03:25 - Impressions (1) Aspiration pneumonia-improving Status: Acute Assessment and plan: Pulmonology following. Cont Duo nebs, mucinex, Pulmozyme, Singulair. Cont Zosyn. F/U Blood cultures 2 Throat culture negative. Flu negative Current Visit: Yes (2) Essential Hypertension- controlled Status: Acute Assessment and plan: Holding BP meds for now Current Visit: Yes (3) Glaucoma Status: Acute Assessment and plan: Continue glaucoma drops Current Visit: Yes (4) Ribs, multiple fractures Status: Acute Assessment and plan: Reported by . Current Visit: Yes (5) Subdural hematoma Status: Acute Assessment and plan: 5 weeks ago cared for in [place] recently discharged. Reportedly, Repeat CT of the head was done and was negative. Current Visit: Yes (6) hypokalemia -Replace per orally per protocol DVT prophylaxis- SCDs D/W pt and nurse. All questions answered. I will be away several days. One of my associates will follow in my absence.
[2017-05-12] MEDS: POTASSIUM CHLORIDE 20 MEQ TABLET PO PRN ×2 (14:19→14:28)
[2017-05-12] MEDS: SODIUM CHLORIDE 0.9% 1,000 ML IV SCH (20:24)
[2017-05-12] MEDS: LATANOPROST 0.005% OPH SOLN 2.5 ML BOTTLE BOTH EYES SCH (20:28)
[2017-05-13] MEDS: ALBUTEROL/IPRATROPIUM 3 ML NEB RESP TX SCH ×6 (02:44→23:51)
[2017-05-13] MEDS: PIPERACILLIN/TAZOBACTAM 3,375 MG in SODIUM CHLORIDE 0.9% 100 ML IV SCH ×3 (04:39→20:12)
[2017-05-13] MEDS: ARFORMOTEROL 15 MCG/2 ML NEB RESP TX SCH ×2 (07:16→19:25)
[2017-05-13] MEDS: DORNASE ALFA 2.5 MG/2.5 ML VIAL RESP TX SCH ×2 (07:16→19:29)
--- NOTE | 2017-05-13 08:44 | XRay Report ---
Portable chest Date: 05/13/2017 Clinical history: Pneumonia Comparison: 05/12/2017 Technique: Portable AP sitting chest Findings: Stable cardiomegaly and left subclavian atrioventricular AICD. Stable diffuse parenchymal findings in the left mid to lower lung zone and associated pleural effusion. No significant change in appearance of the right lung or mediastinum. Intravascular bone cement with prior kyphoplasty. Stable right humeral neck fracture and rib fractures. Impression: No significant change in the appearance of the chest when compared to the previous exam. PROCEDURE INTERPRETED AT [facility] DEPARTMENT OF RADIOLOGY Final Report Signed by: Dr. Yue Ladd
--- NOTE | 2017-05-13 09:47 | Hospitalist Progress Note ---
Assessment and Plan (1) Aspiration pneumonia Status: Acute Assessment and plan: LLL pneumonia; on zosyn and bronchodilators; being followed by pulmonary; appreciate help; afebrile and leukocytosis has resolved. O2 saturations are adequate on 2L; chest x-ray from today is stable. Current Visit: Yes (2) Hypertension Status: Acute Assessment and plan: controlled without agents Current Visit: Yes (3) Glaucoma Status: Acute Assessment and plan: stable; continue eye drops Current Visit: Yes (4) Ribs, multiple fractures Status: Acute Assessment and plan: reported by ; pain control Current Visit: Yes (5) Subdural hematoma Status: Acute Assessment and plan: medical care provided in [facility]; repeat CT reported as negative Current Visit: Yes (6) Leukocytosis Status: Acute Assessment and plan: resolved Current Visit: Yes (7) CHF (congestive heart failure) Status: Acute Assessment and plan: Echo with EF of 35%; stable Current Visit: Yes (8) Hypokalemia Status: Acute Assessment and plan: replete; monitor Current Visit: Yes Hospitalist: Subjective Interval history: Patient has no complaints. She states that her breathing is fine. She continues to have a cough. Exam - Constitutional Vitals: Period Temp Pulse Resp BP Sys/Prieto Pulse Ox Last 24 Hr 96.1 F-98.0 F 76-89 16-20 119-144/48-89 20-100 General appearance: no acute distress - Respiratory Respiratory exam: Present: clear to auscultation bilaterally, decreased breath sounds - Cardiovascular Cardiovascular exam: Present: regular rate and rhythm - GI/Abdominal GI/Abdominal exam: Present: normal bowel sounds - Extremities Exam Extremities exam: Present: other (no c/c/e) Results - Labs CBC & BMP: 05/12/17 03:25 05/12/17 03:25
[2017-05-13] MEDS: ESCITALOPRAM 10 MG TABLET PO SCH (09:51)
[2017-05-13] MEDS: PANTOPRAZOLE 40 MG TABLET PO SCH (09:51)
[2017-05-13] MEDS: MONTELUKAST 10 MG TABLET PO SCH (09:51)
[2017-05-13] MEDS: CHOLECALCIFEROL 1,000 UNIT TABLET PO SCH (09:51)
[2017-05-13] MEDS: PILOCARPINE 5 MG TABLET PO SCH ×3 (09:51→22:18)
[2017-05-13] MEDS: GABAPENTIN 100 MG CAPSULE PO SCH ×2 (09:51→22:17)
[2017-05-13] MEDS: BRIMONIDINE 0.1% OPH SOLN 5 ML BOTTLE BOTH EYES SCH ×2 (09:52→22:16)
--- NOTE | 2017-05-13 10:06 | Pulmonology Progress Note ---
Pulmonary - PN: Subj Interval history: Malik Tavares, ANP-BC, GNP-BC, acting as scribe for Dr. Andre Messina Mrs. Cruz is an 87-year-old white female who we saw in initial pulmonary consultation on 05/10/2017. At that time, our impressions were: 1. Acute left lower lung pneumonia 2. Bronchospastic disease with exacerbation 3. Recent subdural hematoma that did not require surgery. 4. Parkinson's disease 5. History of cardiomyopathy and congestive heart failure with an implantable defibrillator followed by Dr. Eddie Fitzpatrick. Note, echocardiogram done 05/10/[address] Fitzpatrick showed an ejection fraction of 35%. 6. High blood pressure 7. Past history of TIAs and CVA 8. Hypothyroidism 9. Past history of esophageal motility dysfunction 10. Chronic pain 05/13/2017. Patient was seen today along with her , Rowan, her daughter Lizzette, her sitter, and Rowena Durán RN. The patient is awake and alert this morning. She is mobilizing her secretions well. On chest exam she still has some loose large airway congestion that she needs to cough out. We will continue on her present treatment as she is improving from a pulmonary standpoint. Chest x-ray today is stable. Outside of the room, her daughter wanted to talk about the patient's memory issues. This is apparently worsening per the daughter's report. We are unsure if this was related to her recent fall with subdural hematomas or if this is just a worsening dementia type picture. Nonetheless, will start Aricept 5 mg at bedtime and see if this improves her cognitive state. Medications have been reviewed. We added Aricept today. Labs been reviewed. No new labs were drawn today. There are no positive cultures. Exam (Progress Note) - Constitutional Vitals: Period Temp Pulse Resp BP Sys/Prieto Pulse Ox Last 24 Hr 96.1 F-98.0 F 76-89 16-20 119-144/48-89 20-100 Exam: Chest... See above Heart no gallop Abdomen is nontender and nondistended; bowel sounds are positive 4 Extremities with nothing to suggest acute deep venous thrombophlebitis Psychiatric... See above Neurologic unchanged Plan: Start Aricept 5 mg at bedtime. Continue present treatment. See orders. Results - Labs CBC & BMP: 05/12/17 03:25 05/12/17 03:25
[2017-05-13] MEDS ORDERED: DONEPEZIL 5 MG TABLET PO SCH (10:30)
[2017-05-13] MEDS: CLORAZEPATE 3.75 MG TABLET PO PRN (16:52)
[2017-05-13] MEDS: fentaNYL 12 MCG/HR PATCH TRANSDERM SCH (18:54)
[2017-05-13] MEDS: DONEPEZIL 5 MG TABLET PO SCH (22:17)
[2017-05-13] MEDS: LATANOPROST 0.005% OPH SOLN 2.5 ML BOTTLE BOTH EYES SCH (22:23)
[2017-05-14] MEDS: ALBUTEROL/IPRATROPIUM 3 ML NEB RESP TX SCH ×6 (03:17→23:00)
[2017-05-14] MEDS: PIPERACILLIN/TAZOBACTAM 3,375 MG in SODIUM CHLORIDE 0.9% 100 ML IV SCH ×3 (04:01→20:05)
[2017-05-14] MEDS: ARFORMOTEROL 15 MCG/2 ML NEB RESP TX SCH ×2 (07:37→20:03)
[2017-05-14] MEDS: DORNASE ALFA 2.5 MG/2.5 ML VIAL RESP TX SCH ×2 (07:47→20:03)
[2017-05-14] MEDS: PANTOPRAZOLE 40 MG TABLET PO SCH (08:46)
[2017-05-14] MEDS: MONTELUKAST 10 MG TABLET PO SCH (08:46)
[2017-05-14] MEDS: CHOLECALCIFEROL 1,000 UNIT TABLET PO SCH (08:46)
[2017-05-14] MEDS: ESCITALOPRAM 10 MG TABLET PO SCH (08:46)
[2017-05-14] MEDS: GABAPENTIN 100 MG CAPSULE PO SCH ×2 (08:46→21:18)
[2017-05-14] MEDS: PILOCARPINE 5 MG TABLET PO SCH ×3 (08:46→21:18)
[2017-05-14] MEDS: BRIMONIDINE 0.1% OPH SOLN 5 ML BOTTLE BOTH EYES SCH ×2 (08:47→21:16)
[2017-05-14 09:21] LABS: Basophils # 0.1 10*3/uL (0.0-0.2); Basophils % 1.2 % (0.0-0.8); Eosinophils # 0.3 10*3/uL (0.0-0.87); Eosinophils % 5.6 % (0.00-10.9); Hematocrit 29.6 VOL% (35.7-47.0); Hemoglobin 9.6 GM/DL (12.0-16.0); Immature Granulocytes % 0.4 %; Immature Granulocytes Absolute 0.02 #; Lymphocytes # 1.3 10*3/uL (1.4-4.0); Lymphocytes % 26.3 % (21.3-54.2); Mean Corpuscular HGB Conc 32.4 GM/DL (32-36); Mean Corpuscular Hemoglobin 31 PG (27-34); Mean Corpuscular Volume 94.3 FL (87-102); Mean Platelet Volume 9.9 FL (9.6-12.0); Monocytes # 0.4 10*3/uL (0.11-0.8); Monocytes % 7.7 % (1.7-12.7); Neutrophils # 2.8 10*3/uL (1.4-7.4); Neutrophils % 58.8 % (38.7-73.9); Platelet Count 183 T/CUMM (130-400); Red Blood Count 3.14 MC/CUMM (3.8-5.5); Red Cell Distribution Width 15.6 % (9.3-17.3); White Blood Count 4.8 T/CUMM (4-12)
[2017-05-14 09:46] LABS: Calcium 9.3 MG/DL (8.5-10.1); Osmolality,Calculated 283.1 MOS/KG (273-304); Potassium 4.1 MMOL/L (3.5-5.1)
[2017-05-14] MEDS: CLORAZEPATE 3.75 MG TABLET PO PRN ×2 (09:56→21:56)
--- NOTE | 2017-05-14 10:20 | XRay Report ---
Portable chest Date: 05/14/2017 Clinical history: Left lower lobe pneumonia Comparison: 05/13/2017 Technique: Portable AP sitting chest Findings: Stable cardiomegaly and left subclavian atrioventricular AICD. Very minimal reduction in the diffuse parenchymal findings at the left lung base. Reduced atelectasis at the right lung base. Intravascular bone cement with prior multilevel kyphoplasty. Stable right humeral neck fracture and rib fractures. Impression: Reduction in the atelectasis/infiltration in the left mid to lower lung zone with reduced atelectasis/infiltration at the right lung base. Intervascular bone cement with osteopenia and prior kyphoplasty, right humeral neck fracture, and rib fractures. 12 mm density in the left midlung zone which may be related to healing rib fracture but continued follow-up chest x-ray may be helpful for further evaluation of these findings. PROCEDURE INTERPRETED AT [facility] DEPARTMENT OF RADIOLOGY Final Report Signed by: Dr. Yue Ladd
--- NOTE | 2017-05-14 10:55 | Pulmonology Progress Note ---
Pulmonary - PN: Subj Interval history: Malik Tavares, ANP-BC, GNP-BC, acting as scribe for Dr. Andre Messina Mrs. Cruz is an 87-year-old white female who we saw in initial pulmonary consultation on 05/10/2017. At that time, our impressions were: 1. Acute left lower lung pneumonia 2. Bronchospastic disease with exacerbation 3. Recent subdural hematoma that did not require surgery. 4. Parkinson's disease 5. History of cardiomyopathy and congestive heart failure with an implantable defibrillator followed by Dr. Eddie Fitzpatrick. Note, echocardiogram done 05/10/[address] Fitzpatrick showed an ejection fraction of 35%. 6. High blood pressure 7. Past history of TIAs and CVA 8. Hypothyroidism 9. Past history of esophageal motility dysfunction 10. Chronic pain 05/13/2017. Patient was seen today along with her , Rowan, her daughter Lizzette, her sitter, and Rowena Durán RN. The patient is awake and alert this morning. She is mobilizing her secretions well. On chest exam she still has some loose large airway congestion that she needs to cough out. We will continue on her present treatment as she is improving from a pulmonary standpoint. Chest x-ray today is stable. Outside of the room, her daughter wanted to talk about the patient's memory issues. This is apparently worsening per the daughter's report. We are unsure if this was related to her recent fall with subdural hematomas or if this is just a worsening dementia type picture. Nonetheless, will start Aricept 5 mg at bedtime and see if this improves her cognitive state. 05/14/2017. The patient was seen today along with her , Rowan, her daughter Lizzette, her sitter, and Rowena Durán RN. Today's chest x-ray shows persistent left lower lung infiltrate compatible with pneumonia that is stable with decreased markings in the right base. We will follow this up tomorrow with an EPA/lateral film. She is on Zosyn and is improving with this medication. We have no positive cultures. She would like to be discharged on or before Saturday as they are celebrating her 's 89th birthday. We told her we would like to see this happens well, but we would like her chest x-ray does show improvement before then. We started Aricept last night. She is tolerated this well so far. Medications have been reviewed. We made no changes today. Labs been reviewed. White count is 4800 with a normal differential; H&H 9.6/ 29.6; platelet count 183,000; creatinine 1.20, BUN 6, sodium 142, potassium 4.1 , magnesium 2.0 Exam (Progress Note) - Constitutional Vitals: Period Temp Pulse Resp BP Sys/Prieto Pulse Ox Last 24 Hr 97.0 F-99.5 F 56-94 14-20 139-164/55-77 96-100 Exam: Chest is fairly clear Heart no gallop Abdomen is nontender and nondistended; bowel sounds are positive 4 Extremities with nothing to suggest acute deep venous thrombophlebitis Psychiatric presently oriented 3 Neurologic unchanged Plan: Continue present treatment. Two-view chest x-ray in the morning. See orders. Results - Labs CBC & BMP: 05/14/17 08:55 05/14/17 08:55
--- NOTE | 2017-05-14 11:48 | Hospitalist Progress Note ---
Assessment and Plan (1) Aspiration pneumonia Status: Acute Assessment and plan: LLL pneumonia; on zosyn and bronchodilators; being followed by pulmonary; appreciate help; afebrile and leukocytosis has resolved. O2 saturations are adequate on 2L; chest x-ray from today shows unchanged LLL infiltrate Current Visit: Yes (2) Hypertension Status: Acute Assessment and plan: blood pressure is becoming elevated; will add norvasc; monitor Current Visit: Yes (3) Glaucoma Status: Acute Assessment and plan: stable; continue eye drops Current Visit: Yes (4) Ribs, multiple fractures Status: Acute Assessment and plan: reported by ; pain control Current Visit: Yes (5) Subdural hematoma Status: Acute Assessment and plan: medical care provided in [facility]; repeat CT reported as negative Current Visit: Yes (6) Leukocytosis Status: Acute Assessment and plan: resolved; monitor Current Visit: Yes (7) CHF (congestive heart failure) Status: Acute Assessment and plan: Echo with EF of 35%; stable Current Visit: Yes (8) Hypokalemia Status: Acute Assessment and plan: resolved; monitor Current Visit: Yes Hospitalist: Subjective Interval history: Patient has no complaints. Exam - Constitutional Vitals: Period Temp Pulse Resp BP Sys/Prieto Pulse Ox Last 24 Hr 97.0 F-99.5 F 72-94 14-20 139-164/55-77 96-100 General appearance: no acute distress - Eye Eye exam: Present: EOMI - Respiratory Respiratory exam: Present: clear to auscultation bilaterally, decreased breath sounds - Cardiovascular Cardiovascular exam: Present: regular rate and rhythm - GI/Abdominal GI/Abdominal exam: Present: normal bowel sounds - Neurological Exam Neurological exam: Present: oriented X3 - Psychiatric Psychiatric exam: Present: normal affect, normal mood Results - Labs CBC & BMP: 05/14/17 08:55 05/14/17 08:55
[2017-05-14] MEDS: amLODIPine 5 MG TABLET PO SCH (13:39)
[2017-05-14] MEDS: SODIUM CHLORIDE 0.9% 1,000 ML IV SCH (14:22)
[2017-05-14] MEDS: DONEPEZIL 5 MG TABLET PO SCH (21:18)
[2017-05-14] MEDS: LATANOPROST 0.005% OPH SOLN 2.5 ML BOTTLE BOTH EYES SCH (21:21)
[2017-05-15] MEDS: ALBUTEROL/IPRATROPIUM 3 ML NEB RESP TX SCH ×6 (03:00→23:55)
[2017-05-15] MEDS: PIPERACILLIN/TAZOBACTAM 3,375 MG in SODIUM CHLORIDE 0.9% 100 ML IV SCH ×3 (04:29→21:22)
[2017-05-15] MEDS: ARFORMOTEROL 15 MCG/2 ML NEB RESP TX SCH ×2 (07:42→07:50)
[2017-05-15] MEDS: DORNASE ALFA 2.5 MG/2.5 ML VIAL RESP TX SCH ×2 (07:50→20:17)
[2017-05-15] MEDS: amLODIPine 5 MG TABLET PO SCH (08:21)
[2017-05-15] MEDS: MONTELUKAST 10 MG TABLET PO SCH (08:21)
[2017-05-15] MEDS: PANTOPRAZOLE 40 MG TABLET PO SCH (08:21)
[2017-05-15] MEDS: PILOCARPINE 5 MG TABLET PO SCH ×3 (08:21→21:22)
[2017-05-15] MEDS: GABAPENTIN 100 MG CAPSULE PO SCH ×2 (08:21→21:22)
[2017-05-15] MEDS: CLORAZEPATE 3.75 MG TABLET PO PRN ×2 (08:21→17:47)
[2017-05-15] MEDS: CHOLECALCIFEROL 1,000 UNIT TABLET PO SCH (08:21)
[2017-05-15] MEDS: BRIMONIDINE 0.1% OPH SOLN 5 ML BOTTLE BOTH EYES SCH ×2 (08:22→21:22)
[2017-05-15] MEDS: ESCITALOPRAM 10 MG TABLET PO SCH (08:22)
--- NOTE | 2017-05-15 09:43 | XRay Report ---
Portable chest Date: 05/15/2017 Clinical history: Pneumonia Comparison: 05/14/2017 Technique: Portable AP sitting chest Findings: Stable cardiomegaly and left subclavian atrioventricular AICD. Very minimal reduction in the pleural and parenchymal findings in the left lower lung zone. Reduced atelectasis at the right lung base. Intervascular bone cement with prior kyphoplasty. Osteopenia with stable right humeral neck and rib fractures. Impression: Reduction in the atelectasis/infiltration in the left mid to lower lung zone and at the right lung base. PROCEDURE INTERPRETED AT [facility] DEPARTMENT OF RADIOLOGY Final Report Signed by: Dr. Yue Ladd
--- NOTE | 2017-05-15 10:16 | Pulmonology Progress Note ---
Pulmonary - PN: Subj Interval history: Malik Tavares, ANP-BC, GNP-BC, acting as scribe for Dr. Andre Messina Mrs. Cruz is an 87-year-old white female who we saw in initial pulmonary consultation on 05/10/2017. At that time, our impressions were: 1. Acute left lower lung pneumonia 2. Bronchospastic disease with exacerbation 3. Recent subdural hematoma that did not require surgery. 4. Parkinson's disease 5. History of cardiomyopathy and congestive heart failure with an implantable defibrillator followed by Dr. Eddie Fitzpatrick. Note, echocardiogram done 05/10/[address] Fitzpatrick showed an ejection fraction of 35%. 6. High blood pressure 7. Past history of TIAs and CVA 8. Hypothyroidism 9. Past history of esophageal motility dysfunction 10. Chronic pain 05/13/2017. Patient was seen today along with her , Rowan, her daughter Lizzette, her sitter, and Rowena Durán RN. The patient is awake and alert this morning. She is mobilizing her secretions well. On chest exam she still has some loose large airway congestion that she needs to cough out. We will continue on her present treatment as she is improving from a pulmonary standpoint. Chest x-ray today is stable. Outside of the room, her daughter wanted to talk about the patient's memory issues. This is apparently worsening per the daughter's report. We are unsure if this was related to her recent fall with subdural hematomas or if this is just a worsening dementia type picture. Nonetheless, will start Aricept 5 mg at bedtime and see if this improves her cognitive state. 05/14/2017. The patient was seen today along with her , Rowan, her daughter Lizzette, her sitter, and Rowena Durán RN. Today's chest x-ray shows persistent left lower lung infiltrate compatible with pneumonia that is stable with decreased markings in the right base. We will follow this up tomorrow with an EPA/lateral film. She is on Zosyn and is improving with this medication. We have no positive cultures. She would like to be discharged on or before Saturday as they are celebrating her 's 89th birthday. We told her we would like to see this happens well, but we would like her chest x-ray does show improvement before then. We started Aricept last night. She is tolerated this well so far. 05/15/2017. The patient was seen today along with her , Maikel, her daughter Lizzette, her sitter, and Rowena Durán RN. Overall, the patient feels that she is making progress every day. She feels well today. Prior to this admission the patient was being evaluated by [facility] home health. She was apparently supposed to have home physical therapy and occupational therapy as well. We will consult social services coordinator to get this resumed once the patient is discharged. Chest x-ray today was ordered as a 2 view, however, semiupright portable one view was obtained. This showed a small residual left lower lung infiltrate. She is presently being treated with Zosyn. At discharge, we recommend doxycycline 100 mg p.o. twice daily for 7 days. Note, there are no positive cultures. Medications have been reviewed. We made no changes today. Labs been reviewed. No new labs were drawn today. Exam (Progress Note) - Constitutional Vitals: Period Temp Pulse Resp BP Sys/Prieto Pulse Ox Last 24 Hr 97.0 F-98.0 F 47-97 16-20 133-159/57-83 95-100 Exam: Chest is fairly clear Heart no gallop Abdomen is nontender and nondistended; bowel sounds are positive 4 Extremities with nothing to suggest acute deep venous thrombophlebitis Psychiatric presently oriented 3 Neurologic unchanged Plan: Continue present treatment. Consult case management for resumption of home health with home physical therapy and occupational therapy at discharge. At discharge, would recommend doxycycline 100 mg p.o. twice daily for 7 days. If she continues to do well, she should be ready for discharge tomorrow. This was discussed with the patient and her family to their understanding and they are in complete agreement. Results - Labs CBC & BMP: 05/14/17 08:55 05/14/17 08:55
[2017-05-15] MEDS: SODIUM CHLORIDE 0.9% 1,000 ML IV SCH (12:18)
--- NOTE | 2017-05-15 14:19 | Hospitalist Progress Note ---
Assessment and Plan (1) Aspiration pneumonia Status: Acute Assessment and plan: continue with Zosyn and bronchodilators. CXR today showed some improvement. Continue with current care. Current Visit: Yes (2) Hypertension Status: Acute Assessment and plan: stable Current Visit: Yes (3) Glaucoma Status: Acute Assessment and plan: stable; continue eye drops Current Visit: Yes (4) Subdural hematoma Status: Acute Assessment and plan: Recent subdural hematoma that did not require surgery.Stable,medical care provided in [facility]; repeat CT reported as negative. Current Visit: Yes (5) Ribs, multiple fractures Status: Acute Assessment and plan: reported by ; pain control Current Visit: Yes (6) CHF (congestive heart failure) Status: Acute Assessment and plan: Echo with EF of 35%; stable. S/p implantable defibrillator. Continue outpatient Cardiology follow up. Current Visit: Yes Hospitalist: Subjective Interval history: Patient seen. No new issues.No major events overnight .Family requests for home PT with Home health. Exam - Constitutional Vitals: Period Temp Pulse Resp BP Sys/Prieto Pulse Ox Last 24 Hr 97.0 F-97.9 F 60-97 16-20 133-159/57-83 97-100 General appearance: no acute distress, other - Head Head exam: Present: normal inspection - Neck Neck exam: Present: other (neck bent to the left while sleeping) - Respiratory Respiratory exam: Present: clear to auscultation bilaterally - Cardiovascular Cardiovascular exam: Present: regular rate and rhythm - GI/Abdominal GI/Abdominal exam: Present: normal bowel sounds - Extremities Exam Extremities exam: Present: normal inspection Results - Labs CBC & BMP: 05/14/17 08:55 05/14/17 08:55 Lab Results: I have reviewed the past 24 hour labs
[2017-05-15] MEDS: DONEPEZIL 5 MG TABLET PO SCH (21:22)
[2017-05-15] MEDS: DESITIN 4OZ/NYSTATIN 15 GRAM MIXTURE PASTE TOP SCH (21:22)
[2017-05-15] MEDS: LATANOPROST 0.005% OPH SOLN 2.5 ML BOTTLE BOTH EYES SCH (21:25)
[2017-05-16] MEDS: PIPERACILLIN/TAZOBACTAM 3,375 MG in SODIUM CHLORIDE 0.9% 100 ML IV SCH ×2 (03:56→11:12)
[2017-05-16] MEDS: ALBUTEROL/IPRATROPIUM 3 ML NEB RESP TX SCH ×3 (04:06→11:05)
[2017-05-16] MEDS: DORNASE ALFA 2.5 MG/2.5 ML VIAL RESP TX SCH (07:54)
[2017-05-16] MEDS: ARFORMOTEROL 15 MCG/2 ML NEB RESP TX SCH (07:54)
[2017-05-16] MEDS: ESCITALOPRAM 10 MG TABLET PO SCH (08:19)
[2017-05-16] MEDS: GABAPENTIN 100 MG CAPSULE PO SCH (08:19)
[2017-05-16] MEDS: MONTELUKAST 10 MG TABLET PO SCH (08:19)
[2017-05-16] MEDS: PANTOPRAZOLE 40 MG TABLET PO SCH (08:19)
[2017-05-16] MEDS: CLORAZEPATE 3.75 MG TABLET PO PRN (08:19)
[2017-05-16] MEDS: PILOCARPINE 5 MG TABLET PO SCH ×2 (08:20→14:26)
[2017-05-16] MEDS: CHOLECALCIFEROL 1,000 UNIT TABLET PO SCH (08:20)
[2017-05-16] MEDS: amLODIPine 5 MG TABLET PO SCH (08:20)
[2017-05-16] MEDS: BRIMONIDINE 0.1% OPH SOLN 5 ML BOTTLE BOTH EYES SCH (08:20)
[2017-05-16] MEDS: DESITIN 4OZ/NYSTATIN 15 GRAM MIXTURE PASTE TOP SCH (08:21)
[2017-05-16] MEDS: fentaNYL 12 MCG/HR PATCH TRANSDERM SCH (08:26)
--- NOTE | 2017-05-16 10:53 | Pulmonology Progress Note ---
Pulmonary - PN: Subj Interval history: Malik Tavares, ANP-BC, GNP-BC, acting as scribe for Dr. Andre Messina Mrs. Cruz is an 87-year-old white female who we saw in initial pulmonary consultation on 05/10/2017. At that time, our impressions were: 1. Acute left lower lung pneumonia 2. Bronchospastic disease with exacerbation 3. Recent subdural hematoma that did not require surgery. 4. Parkinson's disease 5. History of cardiomyopathy and congestive heart failure with an implantable defibrillator followed by Dr. Eddie Fitzpatrick. Note, echocardiogram done 05/10/[address] Fitzpatrick showed an ejection fraction of 35%. 6. High blood pressure 7. Past history of TIAs and CVA 8. Hypothyroidism 9. Past history of esophageal motility dysfunction 10. Chronic pain 05/13/2017. Patient was seen today along with her , Rowan, her daughter Lizzette, her sitter, and Rowena Durán RN. The patient is awake and alert this morning. She is mobilizing her secretions well. On chest exam she still has some loose large airway congestion that she needs to cough out. We will continue on her present treatment as she is improving from a pulmonary standpoint. Chest x-ray today is stable. Outside of the room, her daughter wanted to talk about the patient's memory issues. This is apparently worsening per the daughter's report. We are unsure if this was related to her recent fall with subdural hematomas or if this is just a worsening dementia type picture. Nonetheless, will start Aricept 5 mg at bedtime and see if this improves her cognitive state. 05/14/2017. The patient was seen today along with her , Rowan, her daughter Lizzette, her sitter, and Rowena Durán RN. Today's chest x-ray shows persistent left lower lung infiltrate compatible with pneumonia that is stable with decreased markings in the right base. We will follow this up tomorrow with an EPA/lateral film. She is on Zosyn and is improving with this medication. We have no positive cultures. She would like to be discharged on or before Saturday as they are celebrating her 's 89th birthday. We told her we would like to see this happens well, but we would like her chest x-ray does show improvement before then. We started Aricept last night. She is tolerated this well so far. 05/15/2017. The patient was seen today along with her , Rowan, her daughter Lizzette, her sitter, and Rowena Durán RN. Overall, the patient feels that she is making progress every day. She feels well today. Prior to this admission the patient was being evaluated by [facility]. She was apparently supposed to have home physical therapy and occupational therapy as well. We will consult foster care social worker to get this resumed once the patient is discharged. Chest x-ray today was ordered as a 2 view, however, semiupright portable one view was obtained. This showed a small residual left lower lung infiltrate. She is presently being treated with Zosyn. At discharge, we recommend doxycycline 100 mg p.o. twice daily for 7 days. Note, there are no positive cultures. 05/16/2017. The patient was seen today along with her Rowan, her daughter Lizzette, and her sitter. Overall the patient is doing very well. She continues to feel well. She is anticipating discharge home today. Home health nursing, home health physical therapy, and home health occupational therapy have been arranged. Medications have been reviewed. We made no changes today. Labs been reviewed. No new labs were drawn today. Exam (Progress Note) - Constitutional Vitals: Period Temp Pulse Resp BP Sys/Prieto Pulse Ox Last 24 Hr 96.9 F-98.4 F 76-107 16-20 131-145/56-69 94-100 Exam: Chest is fairly clear Heart no gallop Abdomen is nontender and nondistended; bowel sounds are positive 4 Extremities with nothing to suggest acute deep venous thrombophlebitis Psychiatric presently oriented 3 Neurologic unchanged Plan: At discharge, would recommend doxycycline 100 mg p.o. twice daily for 7 days. She will be scheduled follow-up with Erica Kelly, nurse practitioner, in approximately 6-8 weeks with a chest x-ray, CBC, and BMP. She could be seen sooner if needed. She is stable from a pulmonary standpoint and can be discharged when her attending feels she is ready. We will sign off. Please reconsult as needed. Results - Labs CBC & BMP: 05/14/17 08:55 05/14/17 08:55 Specialty Discharge - Follow Up or Referrals Follow up with: Erica Kelly CFNP [Advanced Practice Nurse] - (6-8 weeks (NOT A SATURDAY OR A MORNING APPT)...with CXR, CBC, and BMP/Mg+)
[2017-05-16 11:19] VITALS: BP 121/47
--- NOTE | 2017-05-16 11:20 | Discharge Summary ---
<Darek Casas - Last Filed: 05/16/17 11:25> Hospital Course - Hospital Course Hospital Course: This is a very pleasant 87-year-old female that presented to the ED at [facility] via EMS on May 09, 2017 for evaluation of shortness of breath and fever. The patient has a very complex medical history significant for coronary artery disease, cardiomyopathy, esophageal motility dysfunction, humerus fracture, hypothyroidism, pulmonary hypertension, congestive heart failure, Parkinson's disease, bronchospastic disease, chronic pain syndrome, transient ischemic attacks, hypertension, dementia, osteoporosis, arthritis, subdural hematoma, and glaucoma. The patient has a surgical history significant for internal defibrillator placement, appendectomy, tonsillectomy, hysterectomy, and bilateral total hip replacement. The patient reported an onset of fever on the day of presentation. In addition she reported a nonproductive cough and generalized discomfort however, denied chest pain. The patient reported that she was extremely weak, experiencing difficulty attempted to ambulate, and experiencing difficulty swallowing during meals. At the time of ED presentation, the patient was noted to be mildly febrile with a temperature noted at 99.6. She was tachycardic with a heart rate of 105. Labs were obtained; hematology panel reported white blood cell count at 15, hemoglobin at 11.5, hematocrit at 35, platelet count at 196. Chemistry panel was obtained which reported a sodium at 138, potassium at 3.9, chloride 103, carbon dioxide of 27, BUN at 16, and creatinine at 1.30. Lactic acid was noted at 2.1. Chest x-ray was obtained which reported stable mild cardiomegaly and persistent opacities at the left lower lung base. Incidentally, the patient had been previously seen at [facility] 5 weeks prior to presentation for a subdural hematoma secondary to a fall. The patient had been transported to [facility] in [place] for stabilization. She was subsequently discharged to [facility] for recovery. The patient was subsequently admitted to the hospitalist services for continuation of care. The patient was transferred to the critical care unit, blood cultures were drawn and empiric antibiotics were initiated. Fluid resuscitation was performed. A pulmonary consultation was requested. The patient was evaluated and treated. The patient's condition gradually improved. The patient experienced no significant overnight events. She is afebrile. She is tolerating all oral feedings without difficulty. Today, we feel that she is indeed appropriate for discharge home to follow-up with her primary care physician, and grants director as indicated. She will be discharged on doxycycline 100 mg p.o. twice daily for 7 days per pulmonology recommendation. Patient seen this am, vital signs are stable, will dc now. Specialty Discharge - Follow Up or Referrals Follow up with: Erica Kelly CFNP [Advanced Practice Nurse] - 06/27/17 1:00 pm (6-8 weeks (NOT A SATURDAY OR A MORNING APPT)...with CXR, CBC, and BMP/Mg+) Discharge Plan - Discharge Data Disposition: Home Health Service - Discharge Medications New Donepezil [Aricept] 5 mg PO BEDTIME tablet Dornase Salvador [Pulmozyme] 2.5 mg RESP TX RT Q12H vial guaiFENesin ER TAB [Mucinex] 600 mg PO BID #20 tablet HYDROcodone/ACETAMIN 5-325 [Loring 5-325] 1 tablet PO Q6H PRN #20 tablet PRN Reason: Pain Moderate (4-7) Montelukast Tab [Singulair Tab] 10 mg PO DAILY tablet amLODIPine [Norvasc] 5 mg PO DAILY #30 tablet Arformoterol Neb [Brovana] 15 mcg RESP TX RT BID Doxycycline Hyclate Cap [Vibramycin Cap] 100 mg PO BID #14 capsule Continue Latanoprost 0.005% Oph Soln [Xalatan 0.005% Oph Soln] 1 drop BOTH EYES BEDTIME [place] Tab [Salagen] 5 mg PO DAILY Omeprazole [Prilosec] 20 mg PO BID Cholecalciferol [Vitamin D3] 1,000 unit PO DAILY Escitalopram [Lexapro] 10 mg PO DAILY hydrOXYzine HCL TAB [Atarax Tab] 25 mg PO PRN PRN PRN Reason: Itching rOPINIRole [Requip] 0.5 mg PO DAILY Zolpidem Tartrate [Ambien] 10 mg PO BEDTIME PRN PRN Reason: Sleep Gabapentin 100 mg PO BID Ibandronate Sodium [Boniva] 150 mg PO Q30D Potassium Chloride 10 meq PO QOTHER DAY Aspirin EC Tab 81 mg PO DAILY Brimonidine 0.1% Oph Soln [Alphagan P 0.1% Oph Soln] 1 drop BOTH EYES BID Benzonatate [Tessalon] 100 mg PO BID PRN PRN Reason: Cough Ipratropium/Albuterol Sulfate [Iprat-Albut 0.5-3(2.5) mg/3 ml] 3 ml IH TID Fluticasone 50 Mcg Nasal [place] [Flonase Nasal [place]] 1 spray BOTH NARES DAILY PRN PRN Reason: Sinus Symptoms fentaNYL 12 MCG/HR PATCH [Duragesic 12 Patch] 1 patch TRANSDERM Q3DAY Discontinued HYDROcodone/ACETAMIN 10-325 [Loring 10-325] 1 tablet PO DIRECTED PRN PRN Reason: Pain Carvedilol [Coreg] 6.25 mg PO DAILY Lisinopril 5 mg PO DAILY - Follow Up or Referral Follow Up: Erica Kelly CFNP [Advanced Practice Nurse] - 06/27/17 1:00 pm (6-8 weeks (NOT A SATURDAY OR A MORNING APPT)...with CXR, CBC, and BMP/Mg+) - Forms/Instructions Instructions: Community-acquired Pneumonia (DC), Leukocytosis (DC), Dyspnea ( GEN) Exam - Constitutional Vitals: Period Temp Pulse Resp BP Sys/Prieto Pulse Ox Last 24 Hr 96.9 F-98.4 F 75-107 16-20 121-145/47-69 94-100 Discharge Results Procedures and tests throughout hospitalization: Pending Orders 05/13/17 08:00 Sputum Culture and Gram Stain Stat DS: Provider Date of admission: 05/09/17 20:27 Primary care physician: . No PCP Attending physician on admission: Jimbo Powell MD Consults: 05/09/17 21:02 Consult to Physician [CONS] Routine Comment: aspiration pneumonia Consulting Provider: Andre Messina Person Notified: aware Date Notified: 05/10/17 Time Notified: 15:33 05/09/17 22:02 Consult to Pharmacy [CONS] Routine Reason for Pharmacy Consult: Dose/Manage Vancomycin 05/12/17 10:52 Consult to Physical Therapy [CONS] Routine Reason for Physical Therapy: Evaluate and Treat Start Therapy: Tomorrow 05/15/17 09:50 Consult to Case Mgmt/Social Srvs [CONS] Routine Reason for Case Mgmt/Social Srvs: Home Health Consult Comment: with PT for discharge tomorrow 05/15/17 10:10 Consult to Case Mgmt/Social Srvs [CONS] Routine Reason for Case Mgmt/Social Srvs: Other Consult Comment: Pt family aslo req OT at home; has used [facility] in the past Discharging clinician: Darek Casas CNP <Annika Izaguirre - Last Filed: 05/16/17 13:26> Hospital Course - Time spent with patient Time with patient DS: Greater than 30 minutes (Time spent 35mins) Diagnosis - Discharge Diagnosis (1) Aspiration pneumonia Status: Acute (2) Hypertension Status: Acute (3) Glaucoma Status: Acute (4) Subdural hematoma Status: Acute (5) Ribs, multiple fractures Status: Acute (6) CHF (congestive heart failure) Status: Acute Discharge Plan - Discharge Data Condition at Discharge: Stable Discharge Diet: heart healthy Activity: resume usual activities as tolerated - Forms/Instructions Additional Discharge Instructions: follow with PCP in 1week Exam - Constitutional General appearance: no acute distress - Head Head exam: Present: normal inspection - Respiratory Respiratory exam: Present: clear to auscultation bilaterally - Cardiovascular Cardiovascular exam: Present: regular rate and rhythm - GI/Abdominal GI/Abdominal exam: Present: normal bowel sounds - Extremities Exam Extremities exam: Present: normal inspection
[2017-05-16] MEDS: SODIUM CHLORIDE 0.9% 1,000 ML IV SCH (12:12)
== END 2017-05-16 15:00 | disposition home health service (06) | DRG 178 ==
LOC: EDUNIT# → EDBD → N.ED 17:37 → N.EDINP 20:27 → SUATTDRO 20:27 → N.EDINP 20:54 → N.CC 21:05 → N.5E 05-10 14:52
PROVIDERS: ADMIT Internal Medicine; ATTEND Internal Medicine